=== PATIENT | male | born 1950 | race Caucasian/White ===

== ENCOUNTER 2018-03-20 06:43 | Day surgery (SDC) | payer BC ==
[2018-03-20 06:54] VITALS: BMI 29.5
--- NOTE | 2018-03-20 07:13 | ED PDOC ---
Arrival/HPI - General Historian: Patient - History of Present Illness Time/Duration: 24 hours Symptom Onset: Gradual Symptom Course: Intermittent, [place] Quality: Aching, Stabbing Severity Level: 8 Activities at Onset: Rest <José Miner - Last Filed: 03/20/18 08:44> <YannLuca L - Last Filed: 03/20/18 09:16> - General Chief Complaint: Male Genitourinary Time Seen by Provider: 03/20/18 07:00 - History of Present Illness Narrative History of Present Illness (Text): 03/20/18 07:10 Dr. Bennett is a 67 year old male with PMH of nephrolithiasis (15 years ago) who presents to ED with left flank pain worsening over the past 24 hours. He was at the ED in [place] last night where CT abdomen/pelvis was performed and he was found to have nephrolithiasis with hydronephrosis. He states that his Cr at the time was rising at 1.7 as well. He states that his Cr has been elevated for the past few days and that he has already seen a x ray control equipment repairer. He describes the left flank pain as an intermittent, colicky type pain that is a sharp, stabbing type pain. When it is present, it is 8/10 in severity. He states that his urologist is Dr. Chris who is planning on taking him to the OR today for stent placement. He states the stone is 5.5mm. 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 03/20/18 07:48 (José Miner) Past Medical History - Provider Review Nursing Documentation Reviewed: Yes - Travel History Have you recently traveled outside [place] w/in the past 3 mons?: No - Renal Hx Kidney Stones: Yes (left ureter) - Endocrine/Metabolic Hx Endocrine Disorders: No - Hematological/Oncological Hx Blood Disorders: No - Integumentary Hx Dermatological Disorder: No - Musculoskeletal/Rheumatological Hx Musculoskeletal Disorders: No - Gastrointestinal Hx Gastrointestinal Disorders: No - Genitourinary/Gynecological Hx Hematuria: Yes - Psychiatric Hx Substance Use: No - Anesthesia Hx Anesthesia: No <José Miner - Last Filed: 03/20/18 08:44> Family/Social History - Physician Review Nursing Documentation Reviewed: Yes Family/Social History: Diabetes (father), Hypertension (mother) Smoking Status: Never Smoked Hx Alcohol Use: No Hx Substance Use: No <José Miner - Last Filed: 03/20/18 08:44> Allergies/Home Meds <José Miner - Last Filed: 03/20/18 08:44> <Luca Lerner - Last Filed: 03/20/18 09:16> Allergies/Adverse Reactions: Allergies No Known Allergies Allergy (Verified 03/20/18 07:03) Home Medications: Home Meds Medication Instructions Recorded Confirmed No Known Home Med 03/20/18 03/20/18 Review of Systems - Physician Review All systems were reviewed & negative as marked: Yes - Review of Systems Constitutional: absent: Fatigue, Fevers Eyes: absent: Vision Changes ENT: absent: Sore Throat, Rhinorrhea Respiratory: absent: SOB, Cough Cardiovascular: absent: Chest Pain, ALDRICH Gastrointestinal: absent: Nausea, Vomiting Genitourinary Male: Frequency. absent: Dysuria, Hematuria Musculoskeletal: absent: Arthralgias Skin: absent: Rash, Pruritis Neurological: absent: Headache, Speech Changes Endocrine: absent: Diaphoresis Hemo/Lymphatic: absent: Adenopathy Psychiatric: absent: Anxiety, Depression <José Miner - Last Filed: 03/20/18 08:44> Physical Exam Vital Signs Reviewed: Yes Temperature: Afebrile Blood Pressure: Normal Pulse: Regular Respiratory Rate: Normal Appearance: Positive for: Non-Toxic, Comfortable Pain Distress: None Mental Status: Positive for: Alert and Oriented X 3 - Systems Exam Head: Present: Atraumatic, Normocephalic Pupils: Present: PERRL Extroacular Muscles: Present: EOMI Conjunctiva: Present: Normal Ears: Present: Normal Mouth: Present: Moist Mucous Membranes Pharnyx: Present: Normal. No: ERYTHEMA, EXUDATE Nose (External): Present: Atraumatic Neck: Present: Normal Range of Motion. No: JVD Respiratory/Chest: Present: Clear to Auscultation. No: Wheezes, Rales, Rhonchi Cardiovascular: Present: Regular Rate and Rhythm, Normal S1, S2. No: Murmurs, Rub, Gallop Abdomen: No: Tenderness, Rebound, Guarding Back: Present: Normal Inspection. No: CVA Tenderness Upper Extremity: Present: Normal Inspection. No: Cyanosis, Edema Lower Extremity: Present: Normal Inspection. No: Edema Neurological: Present: Speech Normal Skin: Present: Warm, Dry Psychiatric: Present: Alert, Oriented x 3 <José Miner - Last Filed: 03/20/18 08:44> Vital Signs Temp Pulse Resp BP Pulse Ox 03/20/18 08:56 58 L 18 127/80 97 03/20/18 08:19 65 18 147/99 H 98 03/20/18 06:58 99 F 72 18 105/72 96 Medical Decision Making - Lab Interpretations I have reviewed the lab results: Yes <José Miner - Last Filed: 03/20/18 08:44> <Luca Lerner - Last Filed: 03/20/18 09:16> ED Course and Treatment: 03/20/18 07:14 -Patient states he is comfortable at this time, does not need anything for pain -Will work on obtaining CT records from [place] to avoid repeating imaging here -Spoke with Dr. Chris who sent patient here and states he is going to OR at 1000 this AM for stent placement -At this time, Dr. Chris would like repeat labs and UA but no states there is no need for imaging -Will admit to Dr. Chris (José Miner) 03/20/18 08:13 67 yo male with h/o kidney stone with elevated creatinine. Agree with resident history and physical, assessment and plan. Patient initially did not need pain control but then started having pain. Morphine IV ordered and pain is controlled. I discussed case with Dr. Chris, Urologoist who will admit to [facility] for a stent placement. (Luca Lerner) - Lab Interpretations Lab Results: 03/20/18 07:30 Lab Results 03/20/18 07:30: Urine Color Yellow, Urine Appearance Clear, Urine pH 6.0, Ur Specific [place] 1.025, Urine Protein Negative, Urine Glucose (UA) Negative, Urine Ketones >=80, Urine Blood Trace-intact H, Urine Nitrate Negative, Urine Bilirubin Moderate H, Urine Urobilinogen 0.2, Ur Leukocyte Esterase Negative, Urine RBC 1 - 3, Urine WBC 0 - 2, Ur Epithelial Cells None, Urine Bacteria Few 03/20/18 07:30: WBC 5.4, RBC 4.51, Hgb 14.1, Hct 39.8 L, MCV 88.2, MCH 31.3, MCHC 35.4, RDW 13.9, Plt Count 192, MPV 11.3 H, Gran % 63.4, Lymph % (Auto) 21.6 L, [place] % (Auto) 12.4 H, Eos % (Auto) 1.5, Baso % (Auto) 1.1, Gran # 3.44, Lymph # (Auto) 1.2, [place] # (Auto) 0.7 H, Eos # (Auto) 0.1, Baso # (Auto) 0.06 - RAD Interpretation Radiology Orders: 03/20/18 09:11 RETROGRADE PYELOGRAM [RAD] Stat - Medication Orders Current Medication Orders: Discontinued Medications Morphine Sulfate (Morphine) 4 mg IVP STAT STA Stop: 03/20/18 08:14 Last Admin: 03/20/18 08:25 Dose: 4 mg MAR Pain Assessment Document 03/20/18 08:25 SF (Rec: 03/20/18 08:29 SF [id number]) Pain Reassessment Is this a pain reassessment? Yes Sleep Is patient sleeping during reassessment? No Presence of Pain Presence of Pain Yes IVP Administration Document 03/20/18 08:25 SF (Rec: 03/20/18 08:29 SF [id number]) Charges for Administration # of IVP Administrations 1 Disposition/Present on Arrival - Present on Arrival Any Indicators Present on Arrival: No History of DVT/PE: No History of Uncontrolled Diabetes: No Urinary Catheter: No History of Decub. Ulcer: No History Surgical Site Infection Following: None - Disposition Disposition Time: 08:45 Patient Plan: Admission <José Miner - Last Filed: 03/20/18 08:44> - Disposition Have Diagnosis and Disposition been Completed?: Yes <Luca Lerner - Last Filed: 03/20/18 09:16> - Disposition Diagnosis: Left nephrolithiasis, Hydronephrosis, left, Elevated serum creatinine Disposition: HOSPITALIZED Patient Problems: Current Active Problems Problem Status Onset Left nephrolithiasis Acute Hydronephrosis, left Acute Elevated serum creatinine Acute Condition: FAIR Referrals: Barney Bird DO [Primary Care Provider] - Follow up with primary Forms: [employer] ([place]itian)
[2018-03-20 08:11] LABS: BASO # 0.06 K/mm3 (0.0-2.0); BASO % 1.1 % (0.0-3.0); EOS # 0.1 (0.0-0.7); EOS % 1.5 % (1.5-5.0); GRAN # 3.44 (1.4-6.5); GRAN % 63.4 % (50.0-68.0); HEMOGLOBIN 14.1 g/dL (14.0-18.0); LYMPH # 1.2 (1.2-3.4); LYMPH % 21.6 % (22.0-35.0); MEAN CELL VOLUME 88.2 fl (80.0-105.0); MEAN CORPUSCULAR HEMOGLOBIN 31.3 pg (25.0-35.0); MEAN CORPUSCULAR HGB CONC 35.4 g/dl (31.0-37.0); MEAN PLATELET VOLUME 11.3 fl (7.0-11.0); MONO # 0.7 (0.1-0.6); MONO % 12.4 % (1.0-6.0); RBC 4.51 10^6/uL (3.5-6.1); RED CELL DISTRIBUTION WIDTH 13.9 % (11.5-14.5); URINE BILIRUBIN MODERATE (NEGATIVE); URINE BLOOD TRACE-INTACT (NEGATIVE); URINE GLUCOSE (UA) NEGATIVE (NEGATIVE); URINE LEUKOCYTE ESTERASE NEGATIVE Leu/uL (NEGATIVE); URINE PROTEIN NEGATIVE mg/dL (<30 mg/dL); URINE UROBILINOGEN 0.2 E.U./dL (<1 E.U./dL); WHITE BLOOD COUNT 5.4 10^3/ul (4.5-11.0)
[2018-03-20 08:13] LABS: URINE APPEARANCE CLEAR (CLEAR); URINE COLOR YELLOW (YELLOW)
[2018-03-20] MEDS ORDERED: Morphine 4 mg/ml ISec IVP STA (08:13)
[2018-03-20 08:21] LABS: URINE WBC 0 - 2 /hpf (0-6)
[2018-03-20 08:22] LABS: URINE BACTERIA FEW (NEG)
[2018-03-20] MEDS ORDERED: Propofol 10 mg/ml Inj (20 ML) ONE (09:49)
[2018-03-20] MEDS ORDERED: Midazolam 2 MG/2 ML VIAL ONE (09:49)
[2018-03-20] MEDS ORDERED: Iohexol 240 (50 ml) ONE (09:54)
[2018-03-20 10:31] LABS: CALCIUM 9.6 mg/dL (8.4-10.5)
[2018-03-20] MEDS ORDERED: cefTRIAXone 1 GM in NS 100 ML BAG IVPB ONE (11:08)
[2018-03-20] MEDS ORDERED: HYDROmorphone 0.5 mg/0.5 ml ISec IVP PRN (11:37)
[2018-03-20] MEDS ORDERED: Lactated Ringer's 1,000 ML IV SCH (11:45)
[2018-03-20 11:48] VITALS: TEMP 98
[2018-03-20 12:42] VITALS: BP 138/77; PULSE 55; RESP 18; O2SAT 100
--- NOTE | 2018-03-20 14:06 | RAD ---
Date of service: 03/20/2018 PROCEDURE: Fluoroscopy up to 1 hour HISTORY: RETROGRADE PYELOGRAM / STENT INSERTION (LEFT) COMPARISON: TECHNIQUE: Fluoroscopy was provided in the operating room. 22.4 seconds of fluoro time. Cumulative dose 6.83 mGy. Ten images were submitted FINDINGS: The study shows placement of a left ureteral stent IMPRESSION: As above
--- NOTE | 2018-03-20 23:26 | CARD ---
APPROVED REPORT Date of service: 03/20/2018 EKG Measurement Heart [id number] IN [id number] <Conclusion> Sinus bradycardia Inferior infarct, age undetermined Abnormal ECG
--- NOTE | 2018-04-02 08:02 | OP ---
Copied To: Scotty Chris MD Attending MD: Scotty Chris MD PROCEDURE DATE: 03/20/2018 UROLOGY OPERATIVE NOTE PREOPERATIVE DIAGNOSES: Urolithiasis, hematuria, hydronephrosis, severe flank pain. POSTOPERATIVE DIAGNOSES: Urolithiasis, hematuria, hydronephrosis, severe flank pain. PROCEDURE: Cystoscopy, left retrograde pyelogram, insertion of a left double-J stent. COMPLICATIONS: There were no complications. ESTIMATED BLOOD LOSS: Less than 10 mL. FINDINGS: 1. Normal anterior urethra. No stricture. 2. Verumontanum is visually occlusive, actually pretty occlusive for the patient, 2 to 3 cm with no symptoms. 3. There is a upper ureteral stone with hydronephrosis behind it. 4. At the termination of the procedure, we had a double J-stent inserted in the good location. INDICATION FOR THE PROCEDURE: See history and physical for detailed emergency admission. The patient is with severe renal colic. Patient initially presented to the emergency room last evening. After discussing options with the patient, he was then discharged home. Now he has painful symptoms. Patient is now being brought in for the above listed procedure. We discussed options. We discussed ureteroscopy. We discussed shock wave laser lithotripsy. I think patient with large stone in upper ureter in the setting for the patient. They relieve the pain and make sure that is going to feel relief , stent insertion. I did discuss the possibilities as well. I discussed ureteroscopy, laser lithotripsy. After all those discussions, the patient is here for the above listed procedure. DESCRIPTION OF PROCEDURE: After obtaining informed consent, the patient was placed on the table, routine monitor was placed, time-out was called to confirm the patient's positioning. We introduced the cystoscope. No strictures identified. Ver[place]um is moderately visually occlusive. Interestingly watch up . We note then is the ureteral orifice identified. Stent is inserted. Hydronephrosis noted. The stent is noted. Stone is noted. After termination of the procedure, we put double J-stent in good location. Patient tolerated . My recommendation is most likely the shock wave lithotripsy. Shock wave lithotripsy and further plans will follow depending on clinically. We may discharge and consider cysto and ureteroscopy, laser lithotripsy. My general recommendation for the upper ureteral stone, proceed to follow to the kidney hopefully. We will proceed with we will do an x-ray. Further plan is as follows, we are going to send the patient home with antibiotics. Otherwise further plans will follow. We discussed all the . Scotty Chris MD
--- NOTE | 2018-04-02 08:04 | HP ---
Copied To: Scotty Chris MD Attending MD: Scotty Chris MD UROLOGY EMERGENCY ADMISSION Emergency admission for treatment of stone. HISTORY OF PRESENT ILLNESS: On 03/19/2018, the patient presented to the emergency room in [place] with severe renal colic due to stone at that time and he was feeling better. We discussed options. This morning he presents to emergency room again with pain and colic and we are going to put a stent at this point. See the plans listed below. PAST MEDICAL AND SURGICAL HISTORY: As listed on the chart. No history of an VT or CVA. SOCIAL HISTORY: Socially he is family etc. No other social history noted. MEDICATIONS: See the chart. ALLERGIES: PHYSICAL EXAMINATION: GENERAL: A well-nourished male, in moderate distress. VITAL SIGNS: Within normal limits including the chart. LUNGS: Clear. HEART: Normal S1, S2. ABDOMEN: Overall soft, nontender. No flank mass appreciated. GENITOURINARY: Normal phallus without discharge. No testicular masses. RECTAL: Noted for cysto as mentioned now. No rectal masses. Prostate 20 g soft and smooth. LABORATORY DATA: See chart. The creatinine is noted. BUN noted. Calcium noted. Everything is noted. CT scan noted. DIAGNOSES: Urolithiasis, hematuria, hydronephrosis, severe flank pain. PLAN: As follows, a very pleasant gentleman . We discussed options with cystoscopy, ureteroscopy, laser lithotripsy. Based on the location of stone, is that upper ureteral stone, my recommendation is going to be for cysto, stent insertion, patient should feel better and will discuss other options that are available it is the least risk associated with the stricture, rupture, preparation, sepsis, etc. Further plans will follow depending on what we find clinically, but we are going to plan to proceed. The plan is as follows, 1. Emergency admission. 2. Cystoscopy. 3. Retrograde pyelogram. 4. Stent insertion and stone manipulation of the depending on how the patient does clinically. See the operative note. Patient went to the OR. Replaced the stent. Then he is discharged home. Scotty Chris MD [facility] # [id number]
== END 2018-03-20 14:30 | disposition home or self-care (01) ==
LOC: ED 06:43 → MERGE 09:24 → SDS 09:24
PROVIDERS: ATTEND Urology
DX: N13.2 Hydronephrosis with renal and ureteral calculous obstruction (principal); R31.9 Hematuria, unspecified
CPT/HCPCS: 52332; 76000; 80048; 81001; 85025; 93005; 96374; 99285; C1758; C1769; C2625; J0696; J1170; J2250; J2270; J2704; J3010; J7120 ×2; Q9966